=== PATIENT | female | born 1970 | race Caucasian/White ===

== ENCOUNTER 2017-11-28 11:39 | Inpatient (IN) | payer BC ==
[~2017-11-28] VITALS: Ht 162.6 cm; Wt 71.7 kg
[2017-11-28 12:20] LABS: BASOPHILS % (AUTO) 0.3 % (0-1); EOSINOPHILS # (AUTO) 0.1 X10'3 (0-0.9); EOSINOPHILS % (AUTO) 1.1 % (0-6); LYMPHOCYTES # (AUTO) 1.5 X10'3 (1.1-4.8); LYMPHOCYTES % (AUTO) 12.1 % (21-51); MEAN CORPUSCULAR HEMOGLOBIN 34.3 PG (27.0-31.0); MEAN CORPUSCULAR VOLUME 97.9 FL (78-98); MEAN PLATELET VOLUME 6.7 FL (7.4-10.4); MONOCYTES # (AUTO) 0.6 X10'3 (0-0.9); MONOCYTES % (AUTO) 5.3 % (2-12); NEUTROPHILS # (AUTO) 9.8 X10'3 (1.8-7.7); NEUTROPHILS % (AUTO) 81.2 % (42-75); PLATELET COUNT 329 X10'3 (140-440); RED BLOOD COUNT 4.39 X10'6 (4.20-5.60); WHITE BLOOD COUNT 12.1 X10'3 (4.5-11.0)
[2017-11-28 12:40] LABS: ALANINE AMINOTRANSFERASE 46 U/L (12-78); ALBUMIN 3.6 G/DL (3.4-5.0); ALBUMIN/GLOBULIN RATIO 0.9 (1.1-1.5); ALKALINE PHOSPHATASE 141 IU/L (46-116); ANION GAP 17 (8-16); ASPARTATE AMINO TRANSFERASE 45 U/L (10-37); BILIRUBIN,TOTAL 0.4 MG/DL (0.1-1.0); BLOOD UREA NITROGEN 10 MG/DL (7-18); BUN/CREATININE RATIO 13.3 (6.6-38.0); CALCIUM 8.6 MG/DL (8.5-10.1); CHLORIDE 100 MMOL/L (99-107); CREATININE 0.75 MG/DL (0.40-0.90); GLUCOSE 83 MG/DL (70-104); POTASSIUM 3.6 MMOL/L (3.5-5.1); SODIUM 138 MMOL/L (135-145); TOTAL PROTEIN 7.8 G/DL (6.4-8.2); eGFR 82 ML/MIN
[2017-11-28 12:45] LABS: CLARITY,URINE SLIGHTLY CLOUDY (Clear); COLOR,URINE YELLOW (Yellow); GLUCOSE, URINE NEGATIVE (Neg); KETONES,URINE 15 mg/dl (Neg); LEUKOCYTE ESTERASE ,URINE NEGATIVE (Neg); NITRITES, URINE NEGATIVE (Neg); OCCULT BLOOD,URINE TRACE-INTACT (Neg); PROTEIN,URINE TRACE mg/dl (Neg); UROBILINOGEN,URINE 0.2 E.U/dL (0.2-1.0)
[2017-11-28 12:50] LABS: UA COLLECTION TYPE VOIDED
[2017-11-28 12:54] LABS: BACTERIA,URINE FEW /HPF (Neg); HYALINE CASTS 0-3 /LPF (NEGATIVE); MUCUS STRANDS MANY /LPF (Neg); RBC,URINE 0-2 /HPF (0-2); SQUAMOUS EPITHELIAL CELL,UR FEW /LPF (FEW); WBC CLUMPS,URINE MODERATE /HPF (NEGATIVE)
[2017-11-28] MEDS ORDERED: normal saline 1000ML IV soln IVB ONE (13:30)
[2017-11-28] MEDS ORDERED: ondansetron/PF 4mg/2ml inj IV ONE (13:30)
[2017-11-28] MEDS ORDERED: morphine 4 MG/ML inj SYRINge IV ONE (13:30)
[2017-11-28] MEDS ORDERED: morphine 5 MG/ML injection IV ONE (13:30)
[2017-11-28 13:41] LABS: LIPASE 1049 U/L (73-393)
[2017-11-28] MEDS ORDERED: LIDOcaine Viscous 15ml cup MM STA (13:43)
[2017-11-28] MEDS ORDERED: pantoprazole 40 MG vial IV ONE (13:45)
[2017-11-28] MEDS ORDERED: mag hydrox/Alum hydrox/simeth 30ml oral suspension PO ONE (13:45)
[2017-11-28 15:06] LABS: ETHANOL 0.047 GM/DL (0.0-0.010)
[2017-11-28] MEDS ORDERED: H IV ONE (15:45)
[2017-11-28] MEDS ORDERED: OMEP40CA37 PO (16:13)
[2017-11-28] MEDS ORDERED: LISI10TA4 PO (16:13)
[2017-11-28] MEDS ORDERED: AMIT-106 PO (16:13)
[2017-11-28] MEDS ORDERED: mag hydrox/Alum hydrox/simeth 30ml oral suspension PO PRN (16:50)
[2017-11-28] MEDS ORDERED: morphine 4 MG/ML inj SYRINge IV PRN (16:50)
[2017-11-28] MEDS ORDERED: ondansetron/PF 4mg/2ml inj IV PRN (16:50)
[2017-11-28] MEDS ORDERED: metoclopramide 5 mg/ml inj IV PRN (16:50)
[2017-11-28] MEDS ORDERED: acetaminophen 325mg tablet PO PRN ×2 (16:50)
[2017-11-28] MEDS: morphine 4 MG/ML inj SYRINge IV PRN ×2 (17:41→21:51)
[2017-11-28] MEDS: normal saline 1000ml 1,000 ML IV SCH ×2 (17:41→20:02)
[2017-11-28 19:00] VITALS: BP 142/85
[2017-11-28] MEDS: CefTRIAXone/D5W-Rocephin 1gm 50 ML IV SCH (20:03)
[2017-11-28] MEDS: amitriptyline 25mg tablet PO SCH (20:03)
[2017-11-29] VITALS: BP 151/72
[2017-11-29] MEDS: morphine 4 MG/ML inj SYRINge IV PRN ×3 (02:36→20:44)
[2017-11-29 04:45] LABS: BASOPHILS % (AUTO) 0 % (0-1); EOSINOPHILS # (AUTO) 0.1 X10'3 (0-0.9); EOSINOPHILS % (AUTO) 0.6 % (0-6); HEMATOCRIT 36.9 % (35.0-45.0); HEMOGLOBIN 13.1 g/dl (12.0-16.0); LYMPHOCYTES # (AUTO) 0.6 X10'3 (1.1-4.8); MEAN CORPUSCULAR HEMOGLOBIN 34.9 PG (27.0-31.0); MEAN CORPUSCULAR HGB CONC 35.5 % (33.0-36.5); MEAN CORPUSCULAR VOLUME 98.4 FL (78-98); MEAN PLATELET VOLUME 6.8 FL (7.4-10.4); MONOCYTES # (AUTO) 0.5 X10'3 (0-0.9); MONOCYTES % (AUTO) 5.4 % (2-12); NEUTROPHILS # (AUTO) 7.7 X10'3 (1.8-7.7); PLATELET COUNT 242 X10'3 (140-440); RED BLOOD COUNT 3.75 X10'6 (4.20-5.60); WHITE BLOOD COUNT 8.8 X10'3 (4.5-11.0)
[2017-11-29 05:15] LABS: GLUCOSE 87 MG/DL (70-104)
[2017-11-29 05:16] LABS: ALBUMIN 2.9 G/DL (3.4-5.0); ANION GAP 11 (8-16); BLOOD UREA NITROGEN 6 MG/DL (7-18); BUN/CREATININE RATIO 9.1 (6.6-38.0); CALCIUM 7.8 MG/DL (8.5-10.1); CHLORIDE 102 MMOL/L (99-107); CHOL/HDL RATIO 3.4 (0.00-4.99); CHOLESTEROL 110 MG/DL (0-200); CREATININE 0.66 MG/DL (0.40-0.90); HDL CHOLESTEROL 32 MG/DL (35-60); LDL CHOLESTEROL 44 MG/DL (50-100); POTASSIUM 4.3 MMOL/L (3.5-5.1); SODIUM 138 MMOL/L (135-145); TOTAL CARBON DIOXIDE 24.8 MMOL/L (24-32); TRIGLYCERIDES 125 MG/DL (20-135); eGFR > 90 ML/MIN
[2017-11-29] MEDS: normal saline 1000ml 1,000 ML IV SCH ×2 (06:07→15:29)
[2017-11-29 07:24] VITALS: BP 149/86
[2017-11-29] MEDS: CefTRIAXone/D5W-Rocephin 1gm 50 ML IV SCH (07:48)
[2017-11-29] MEDS: pantoprazole 40mg Tablet.DR PO SCH (07:48)
[2017-11-29] MEDS: lisinopril 10 MG tablet PO SCH (07:48)
[2017-11-29] MEDS: HYDROcodone/acetaminophen 10/325mg tab PO PRN ×3 (08:57→17:09)
[2017-11-29 11:36] VITALS: BP 165/85
[2017-11-29] MEDS ORDERED: nicotine 14mg patch - 24hr TD ONE (15:05)
[2017-11-29] MEDS ORDERED: HYDROmorphone 1 mg/ml syringe IV ONE (19:15)
[2017-11-29] MEDS: lactobacillus rhamnosus 10,000 MMU CELLS/CAPSULE PO SCH (19:36)
[2017-11-29 20:00] VITALS: BP 147/76
[2017-11-29] MEDS: amitriptyline 25mg tablet PO SCH (21:33)
[2017-11-29] MEDS: HYDROcodone/acetaminophen 5mg/325mg tablet PO PRN (21:34)
[2017-11-29] MEDS: HYDROmorphone 1 mg/ml syringe IV PRN (21:35)
[2017-11-29] MEDS: temazepam 15mg capsule PO PRN (22:27)
[2017-11-30] VITALS: BP 135/84
[2017-11-30] MEDS: temazepam 15mg capsule PO PRN (00:41)
[2017-11-30] MEDS: HYDROcodone/acetaminophen 5mg/325mg tablet PO PRN ×3 (01:26→10:24)
[2017-11-30] MEDS: HYDROmorphone 1 mg/ml syringe IV PRN ×2 (01:27→05:34)
[2017-11-30] MEDS: normal saline 1000ml 1,000 ML IV SCH (01:29)
[2017-11-30] MEDS ORDERED: HYDROmorphone 1 mg/ml syringe IV ONE (04:00)
[2017-11-30 05:10] LABS: BASOPHILS % (AUTO) 0.3 % (0-1); EOSINOPHILS # (AUTO) 0.2 X10'3 (0-0.9); EOSINOPHILS % (AUTO) 2.5 % (0-6); HEMOGLOBIN 11.7 g/dl (12.0-16.0); LYMPHOCYTES % (AUTO) 13.6 % (21-51); MEAN CORPUSCULAR HGB CONC 34.4 % (33.0-36.5); MEAN CORPUSCULAR VOLUME 98.6 FL (78-98); MEAN PLATELET VOLUME 7.3 FL (7.4-10.4); MONOCYTES # (AUTO) 0.3 X10'3 (0-0.9); MONOCYTES % (AUTO) 3.9 % (2-12); NEUTROPHILS # (AUTO) 5.7 X10'3 (1.8-7.7); NEUTROPHILS % (AUTO) 79.7 % (42-75); PLATELET COUNT 168 X10'3 (140-440); RED BLOOD COUNT 3.45 X10'6 (4.20-5.60); WHITE BLOOD COUNT 7.1 X10'3 (4.5-11.0)
[2017-11-30 07:04] LABS: ALBUMIN 2.6 G/DL (3.4-5.0); ANION GAP 11 (8-16); CALCIUM 8.2 MG/DL (8.5-10.1); CHLORIDE 100 MMOL/L (99-107); GLUCOSE 95 MG/DL (70-104); POTASSIUM 3.5 MMOL/L (3.5-5.1); SODIUM 135 MMOL/L (135-145); TOTAL CARBON DIOXIDE 24.3 MMOL/L (24-32)
[2017-11-30 07:10] LABS: BLOOD UREA NITROGEN 2 MG/DL (7-18); BUN/CREATININE RATIO 3.8 (6.6-38.0); CREATININE 0.53 MG/DL (0.40-0.90); eGFR > 90 ML/MIN
[2017-11-30 08:00] VITALS: BP 135/86
[2017-11-30] MEDS: CefTRIAXone/D5W-Rocephin 1gm 50 ML IV SCH (08:27)
[2017-11-30] MEDS: lisinopril 10 MG tablet PO SCH (08:27)
[2017-11-30] MEDS: lactobacillus rhamnosus 10,000 MMU CELLS/CAPSULE PO SCH (08:27)
[2017-11-30] MEDS: pantoprazole 40mg Tablet.DR PO SCH (08:27)
[2017-11-30] MEDS ORDERED: HYDR-3972 PO (08:36)
[2017-11-30 11:00] VITALS: BP 152/88
== END 2017-11-30 11:52 | disposition home or self-care (01) | DRG 439 ==
LOC: ER 11:40 → ED HOLD 16:50 → OBSVTOIN 18:00 → INTOOBSV 18:00 → EDBEDREQ 18:10 → SUR 3N 18:55 → OBSVTOIN 11-29 14:48
PROVIDERS: ADMIT Hospitalist; ATTEND Family Medicine
DX: K85.20 Alcohol induced acute pancreatitis without necrosis or infection (principal); K50.90 Crohn's disease, unspecified, without complications; D72.829 Elevated white blood cell count, unspecified; D64.9 Anemia, unspecified; F10.10 Alcohol abuse, uncomplicated; F17.200 Nicotine dependence, unspecified, uncomplicated; Y90.1 Blood alcohol level of 20-39 mg/100 ml; I10 Essential (primary) hypertension; K21.9 Gastro-esophageal reflux disease without esophagitis; K29.80 Duodenitis without bleeding; Z90.710 Acquired absence of both cervix and uterus; Z91.041 Radiographic dye allergy status; Z90.49 Acquired absence of other specified parts of digestive tract
CPT/HCPCS: 36415; 71045; 74176; 76700; 80048; 80053; 80061; 80320; 81001; 83605; 83690; 84484; 85025; 87070; 87077; 87088; 87186; 96361; 96374; 96375; 99285; C9113; G0378; J0696; J1170; J2270; J2405; J7030

== ENCOUNTER 2017-12-02 10:45 | Emergency (ER) | payer BC ==
[~2017-12-02] VITALS: Ht 162.6 cm; Wt 72.7 kg
[~2017-12-02 10:45] MED LIST: AMIT-106 PO; HYDR-3972 PO; LISI10TA4 PO; OMEP40CA37 PO
[2017-12-02] MEDS ORDERED: ondansetron/PF 4mg/2ml inj IV ONE (11:05)
[2017-12-02] MEDS ORDERED: normal saline 1000ML IV soln IVB ONE (11:05)
[2017-12-02] MEDS ORDERED: famotidine/PF 10 mg/ml inj IV ONE (11:10)
[2017-12-02] MEDS ORDERED: LIDOcaine Viscous 15ml cup PO ONE (11:10)
[2017-12-02] MEDS ORDERED: morphine 4 MG/ML inj SYRINge IV ONE ×2 (11:10→12:15)
[2017-12-02] MEDS ORDERED: sucralfate 1 gm tablet PO ONE (11:10)
[2017-12-02] MEDS ORDERED: mag hydrox/Alum hydrox/simeth 30ml oral suspension PO ONE (11:10)
[2017-12-02] MEDS ORDERED: metoclopramide 5 mg/ml inj IM ONE (11:10)
[2017-12-02 11:13] LABS: BASOPHILS % (AUTO) 0.1 % (0-1); EOSINOPHILS # (AUTO) 0.1 X10'3 (0-0.9); EOSINOPHILS % (AUTO) 1.2 % (0-6); HEMATOCRIT 39.8 % (35.0-45.0); HEMOGLOBIN 13.9 g/dl (12.0-16.0); LYMPHOCYTES # (AUTO) 1.1 X10'3 (1.1-4.8); LYMPHOCYTES % (AUTO) 9.4 % (21-51); MEAN CORPUSCULAR HEMOGLOBIN 33.9 PG (27.0-31.0); MEAN CORPUSCULAR HGB CONC 34.9 % (33.0-36.5); MEAN CORPUSCULAR VOLUME 97.3 FL (78-98); MEAN PLATELET VOLUME 6.6 FL (7.4-10.4); MONOCYTES # (AUTO) 0.8 X10'3 (0-0.9); MONOCYTES % (AUTO) 7.1 % (2-12); NEUTROPHILS # (AUTO) 9.3 X10'3 (1.8-7.7); NEUTROPHILS % (AUTO) 82.2 % (42-75); PLATELET COUNT 272 X10'3 (140-440); RED BLOOD COUNT 4.09 X10'6 (4.20-5.60); RED CELL DISTRIBUTION WIDTH 13.3 % (11.5-14.5); WHITE BLOOD COUNT 11.3 X10'3 (4.5-11.0)
[2017-12-02 11:22] LABS: INR 0.9 INR; PROTHROMBIN TIME 9.7 SECONDS (9.0-12.0)
[2017-12-02 11:27] LABS: ALANINE AMINOTRANSFERASE 138 U/L (12-78); ALBUMIN 3.1 G/DL (3.4-5.0); ALBUMIN/GLOBULIN RATIO 0.6 (1.1-1.5); ALKALINE PHOSPHATASE 374 IU/L (46-116); ANION GAP 12 (8-16); ASPARTATE AMINO TRANSFERASE 44 U/L (10-37); BILIRUBIN,TOTAL 0.6 MG/DL (0.1-1.0); BLOOD UREA NITROGEN 3 MG/DL (7-18); BUN/CREATININE RATIO 4.7 (6.6-38.0); CALCIUM 9.4 MG/DL (8.5-10.1); CHLORIDE 93 MMOL/L (99-107); CREATININE 0.64 MG/DL (0.40-0.90); GLUCOSE 133 MG/DL (70-104); LIPASE 1489 U/L (73-393); POTASSIUM 3.1 MMOL/L (3.5-5.1); SODIUM 133 MMOL/L (135-145); TOTAL CARBON DIOXIDE 27.9 MMOL/L (24-32); TOTAL PROTEIN 8.1 G/DL (6.4-8.2); eGFR > 90 ML/MIN
[2017-12-02 11:51] LABS: URINE HCG NEGATIVE (NEG)
[2017-12-02 11:54] LABS: CLARITY,URINE CLEAR (Clear); GLUCOSE, URINE NEGATIVE (Neg); KETONES,URINE >=80 mg/dl (Neg); LEUKOCYTE ESTERASE ,URINE NEGATIVE (Neg); NITRITES, URINE NEGATIVE (Neg); OCCULT BLOOD,URINE TRACE-INTACT (Neg); PROTEIN,URINE 100 mg/dl (Neg); UROBILINOGEN,URINE 0.2 E.U/dL (0.2-1.0)
[2017-12-02 11:58] LABS: COLOR,URINE DARK YELLOW (Yellow); UA COLLECTION TYPE CLN CATCH MIDSTREAM
[2017-12-02 12:00] LABS: BACTERIA,URINE FEW /HPF (Neg); MUCUS STRANDS MODERATE /LPF (Neg); RBC,URINE 0-2 /HPF (0-2); SQUAMOUS EPITHELIAL CELL,UR FEW /LPF (FEW); WBC,URINE 0-4 /HPF (0-4)
[2017-12-02 12:02] LABS: ETHANOL < 0.010 GM/DL (0.0-0.010)
[2017-12-02 12:20] VITALS: BP 135/95
== END 2017-12-02 13:03 | disposition home or self-care (01) ==
LOC: ER 10:46
DX: K85.20 Alcohol induced acute pancreatitis without necrosis or infection (principal); I10 Essential (primary) hypertension; K21.9 Gastro-esophageal reflux disease without esophagitis; Z90.49 Acquired absence of other specified parts of digestive tract; Z90.710 Acquired absence of both cervix and uterus; Z88.8 Allergy status to other drugs, medicaments and biological substances; Z79.899 Other long term (current) drug therapy
CPT/HCPCS: 36415; 74018; 80053; 80320; 81001; 81025; 83690; 84484; 85025; 85610; 93005; 96372; 96374; 96375; 96376; 99285; J2270; J2405; J2765; J3490; J7030